=== PATIENT | female | born 2005 | race African-American/Black ===

== ENCOUNTER 2024-01-07 17:45 | Observation (INO) ==
[2024-01-07 18:26] LABS: Basophils # (auto) 0.04 K/uL (0.00-0.20); Basophils % (auto) 0.4 %; Eosinophils # (auto) 0.07 K/uL (0.00-0.50); Eosinophils % (auto) 0.8 %; Hematocrit (blood only) 38.2 % (37.0-47.0); Hemoglobin 12.2 g/dl (12.0-16.0); Immature Granulocytes # (auto) 0.03 K/uL (0.01-0.20); Immature Granulocytes % (auto) 0.3 %; Lymphocytes # (auto) 2.15 K/uL (1.20-3.40); Lymphocytes % (auto) 23.5 %; Mean Corpuscular Hgb Conc 31.9 g/dL (32.0-36.0); Mean Corpuscular Volume 84.5 fL (80.0-100.0); Mean Platelet Volume 9.7 fL (9.4-12.4); Monocytes # (auto) 1.11 K/uL (0.11-0.59); Monocytes % (auto) 12.2 %; Neutrophils # (auto) 5.73 K/uL (1.40-6.50); Neutrophils % (auto) 62.8 %; Platelet Count 311 K/uL (130-400); RDW Coefficient of Variation 13.2 % (11.5-14.5); RDW Standard Deviation 40.1 fL (36.4-46.3); Red Blood Count 4.52 M/uL (4.20-5.40); White Blood Count 9.13 K/ul (4.8-10.8)
--- NOTE | 2024-01-07 18:36 | XRay Report ---
XR chest 1V not portable CLINICAL HISTORY: Chest pain, nonspecific COMPARISON STUDY: No previous studies for comparison. FINDINGS: Lung volumes are normal. Lungs are clear. There is no pneumothorax or pleural effusion. Car diac size is normal. Mediastinal contours are normal. There is no evidence for pulmonary edema. IMPRESSION: No acute cardiopulmonary findings. ACT 112: Negative or not required by law. Electronically signed by: Osman Martin M.D. 01/07/2024 6:35 PM
[2024-01-07 18:41] LABS: Albumin Globulin Ratio 1.4 (0.9-2); Albumin Level 4.3 gm/dl (3.4-5.0); BUN Creatinine Ratio 12.5 (10-20); Bilirubin,Total 0.2 mg/dl (0.2-1.0); Calcium 9.5 mg/dl (8.6-10.3); Creatinine Clr Calc Pharmacy 132.3 ml/min; Est GFR (African American) 140.7 ml/min; Est GFR (Non-African American) 121.4 ml/min; Globulin 3.1 gm/dl (2.5-4.0); Potassium 3.5 mmol/L (3.5-5.1); Total Protein 7.4 gm/dl (6.0-8.3)
[2024-01-07 18:48] LABS: Troponin I High Sensitivity 2.5 pg/ml (0-14)
[2024-01-07 18:50] LABS: INR 1.1 (0.9-1.1); Partial Thromboplastin Time 27 Seconds (21-31); Prothrombin Time 11.4 Seconds (9.0-12.0)
[2024-01-07] MEDS: MAGNESIUM SULFATE / D5W 1 GM/100 ML BAG IV STA (20:24)
[2024-01-07] MEDS: dexAMETHasone**PF** 10 MG/ML VIAL IV ONE (20:24)
[2024-01-07] MEDS: ALBUT/IPRATROP 3MG/0.5MG NEB 3 ML VIAL NEB ONE (20:29)
[2024-01-07] MEDS: SODIUM CHLORIDE 0.9% 1,000 ML IV ONE (21:22)
--- NOTE | 2024-01-07 21:23 | Emergency Department Note ---
Impression & Plan Dyspnea, Asthma exacerbation, COVID-19 ED Provider Note ED Provider Note NAME: EL YANES AGE:18 SEX: Female : 2005 ARRIVES VIA: Private vehicle INFORMANT: Patient ED PROVIDER(s): Yoanna Barton DO CHIEF COMPLAINT: Shortness of breath, chest tightness, COVID-19 HPI: This is a 18-year-old female with a history of asthma who presents emergency room due to concern for increased cough, shortness of breath, and chest tightness that began over the weekend. Patient states she initially felt symptoms of COVID Labor Day weekend and tested positive at urgent care for COVID. She states last week on the body aches, fevers, and nasal congestion began to improve however she developed a worsening cough, increased difficulty breathing, and chest tightness. She states this has worsened over the weekend and into this week. She does use her albuterol inhaler with minimal improvement. She did go to [facility] yesterday and was given a nebulizer treatment with improvement for approximately 1 to 2 hours. They also gave her Tessalon Perles as well as Sudafed for decongestion. Patient does have a history of asthma as well as seasonal allergies. She has not been taking her cetirizine recently for her seasonal allergies. No prior admission to the hospital for asthma exacerbations. She states typically her asthma is related to exercise, allergies, and illness. There is a family history of asthma. She states she does not smoke cigarettes or vape. No other recent travel. PAST MEDICAL HISTORY:See Below PAST SURGICAL HISTORY:See Below FAMILY HISTORY:See Below SOCIAL HISTORY:See Below HOME MEDICATIONS:See Below ALLERGIES:See Below VITALS:See Below PHYSICAL EXAMINATION: GENERAL: alert, well appearing, well nourished, no distress, non-toxic EYE EXAM: normal conjunctiva, PERRL and EOM's grossly intact OROPHARYNX: no exudate, no erythema, lips, buccal mucosa, and tongue normal and mucous membranes are moist NECK: supple, no nuchal rigidity, no adenopathy, non-tender LUNGS: Decreased to auscultation. Normal chest wall mechanics, no obvious wheezes, rhonchi, or rails, tachypnea noted, slightly increased work of breathing HEART: no murmurs, S1 normal and S2 normal ABDOMEN: abdomen soft, non-tender, normo-active bowel sounds, no masses, no rebound or guarding. BACK: Back is symmetrical on inspection and there is no deformity SKIN: no rashes, petechiae, orbruising UPPER EXTREMITIES: upper extremities are grossly normal. FROM, nml pulses b/l. LOWER EXTREMITIES: No pitting edema. FROM, nml pulses b/l. NEURO EXAM: Normal sensorium, cranial nerves II-XII grossly intact, normal speech, no facial droop,nogross weakness of arms, no gross weakness of legs. Gross sensation intact. No ataxia. Vital Signs: reviewed and remarkable Differential Diagnosis: pneumonia, bronchitis, COPD/Asthma exacerbation, pneumothorax, pulmonary embolism, congestive heart failure, acute coronary syndrome, as well as others were considered MEDICAL DECISION MAKING: THis is a 18 yo female who presents to the ER with increased cough and SOB and recent COVID infection. Patient with hx of asthma. She was evaluated at [facility] and given additional cough medication and decongestant and continues to use her albuterol MDI however feels increased dyspnea and chest tightness. Labs drawn and sent, IV established, EKG and CXR performed and interpreted at bedside, and patient placed on telemetry. She was given a continuous neb, IV mag, and IV decadron. Patient states she has previously used inhaled steroids and but did not feel well on oral steroids previously. She was given IVF additionally and IV tylenol and IV toradol for chest pain. Labs reassuring, dimer negative, cxr without obvious pna or pulm edema. Patient reported feeling slightly improved following continuous neb although still not able to take a full deep breath and still having chest tightness. We discussed all results and concern for complicated covid course and asthma exacerbation and risks/benefit of additional inpatient mgmt. Patient and parents at bedside verbalized understanding. A 2nd continuous neb and further IV magnesium added. Case discussed with the hospitalist team for additional evaluation and mgmt. Consultation(s): 0115: DIscussed with Dr. Hannon, [place] hospitalist, for additional evaluation and mgmt. ER Treatment Provided: See below Diagnostics Interpreted By Me: -ECG: Normal sinus at 95, normal axis, normal intervals, no acute ST/T wave changes -Cardiac Monitoring: An order was placed for continuous cardiac monitoring. The monitor shows a rate of 108 with sinus tachycardia rhythm. -Laboratory studies: As stated above and show below. -Imaging studies: X-ray Chest: A single view study of the chest was reviewed and was negative for cardiomegaly, focal infiltrate, effusion, pulmonary edema, or wide mediastinum. Triage Nursing Note Reviewed Prior/Outside Records Reviewed Critical care: Critical care of 58 min performed to assess and manage high likelihood of life- threatening asthma exacerbation, involving labs and imaging performed with assessment to evaluate asthma exacerbation and COVID infection diagnosis with frequent reassessment. This time includes bedside time, treatment discussions with patient/family/consultants, documentation time and excludes procedure time. Past Med/Surg History Problem List (Updated 01/07/24 @ 21:23 by Yoanna Barton DO) COVID-19 (Acute) Asthma exacerbation (Acute) Dyspnea (Acute) Social History Smoking Status: Never smoker Hx Alcohol Use: No Hx Substance Use: No Preferred Language: Qatari Communication Ability: Effective Fun House Attendant Required: No Beliefs That Will Affect Care: None Current Living Situation: Alone Feels Safe at Home: Yes Assistive Devices: None Allergies Allergies Allergy/AdvReac Type Severity Reaction Status Date / Time No Known Allergies Allergy Unverified 01/07/24 21:31 Home Meds Home Medications Medication Instructions Recorded Confirmed albuterol sulfate 90 mcg/actuation 1 puff inhalation DAILY PRN sob 01/07/24 01/07/24 aerosol inhaler ashwagandha root extract 300 mg 300 mg PO DAILY 01/07/24 01/07/24 capsule benzonatate 100 mg capsule 100 mg PO DAILY 01/07/24 01/07/24 [id number]-acetaminophen 7.5 15 ml PO DAILY PRN Congestion 01/07/24 01/07/24 mg-60 [id number] oral liqd isotretinoin 40 mg capsule 40 mg PO BID 01/07/24 01/07/24 lidocaine HCl 2 % mucosal solution 5 ml PO DAILY 01/07/24 01/07/24 (Lidocaine Viscous) [id number] 1 mg 1 tab PO DAILY 01/07/24 01/07/24 tablet Previous Rx's Medication Instructions Recorded prednisone 20 mg tablet 40 mg (2 x 20 mg) PO DAILY 4 days 01/08/24 #8 tabs Results & Data (ED) Vital Signs Vital Signs - 24 hr 01/07/24 17:48 01/07/24 18:25 01/07/24 18:25 Temperature 36.7 C Temperature Source Temporal Artery Scan Pulse Rate 106 H Pulse Rate [Apical] 93 H Pulse Rhythm [Apical] Regular Pulse Strength [Apical] Respiratory Rate 19 14 Respiratory Effort / Characteristics Non-Labored Spontaneous Non-Labored Spontaneous Respiratory Depth Normal Normal Respiratory Pattern Regular Blood Pressure 105/52 L Blood Pressure [Left Arm] 121/75 Blood Pressure Mean 69 Blood Pressure Mean [Left Arm] 90 Blood Pressure Position Sitting Blood Pressure Position [Left Arm] Semi-fowlers Pulse Oximetry 95 98 98 Oxygen Delivery Method Room Air Room Air Room Air Sepsis Recent Fever Within 48 Hours No Sepsis New/Unexplained Change in Mental Status No Sepsis Action Taken by Nursing No Action Required 01/07/24 18:25 01/07/24 18:31 01/07/24 19:13 Temperature Temperature Source Pulse Rate 93 H 94 H Pulse Rate [Apical] 95 H Pulse Rhythm [Apical] Regular Pulse Strength [Apical] Respiratory Rate 14 14 Respiratory Effort / Characteristics Non-Labored Spontaneous Respiratory Depth Normal Respiratory Pattern Regular Blood Pressure Blood Pressure [Left Arm] 109/75 Blood Pressure Mean Blood Pressure Mean [Left Arm] 86 Blood Pressure Position Blood Pressure Position [Left Arm] Semi-fowlers Pulse Oximetry 98 100 Oxygen Delivery Method Room Air Room Air Sepsis Recent Fever Within 48 Hours Sepsis New/Unexplained Change in Mental Status Sepsis Action Taken by Nursing 01/07/24 20:15 01/07/24 20:32 01/07/24 20:42 Temperature Temperature Source Pulse Rate Pulse Rate [Apical] 100 H 106 H Pulse Rhythm [Apical] Regular Regular Pulse Strength [Apical] Respiratory Rate 18 17 Respiratory Effort / Characteristics Non-Labored Spontaneous Non-Labored Spontaneous Respiratory Depth Normal Normal Respiratory Pattern Regular Regular Blood Pressure Blood Pressure [Left Arm] 92/80 L 107/67 Blood Pressure Mean Blood Pressure Mean [Left Arm] 84 80 Blood Pressure Position Blood Pressure Position [Left Arm] Pulse Oximetry 98 98 Oxygen Delivery Method Nasal Cannula Room Air Sepsis Recent Fever Within 48 Hours Sepsis New/Unexplained Change in Mental Status Sepsis Action Taken by Nursing 01/07/24 21:19 01/07/24 22:42 01/07/24 22:56 Temperature 37.2 C Temperature Source Oral Pulse Rate 111 H Pulse Rate [Apical] 127 H 104 H Pulse Rhythm [Apical] Regular Regular Pulse Strength [Apical] Normal Respiratory Rate 18 23 Respiratory Effort / Characteristics Non-Labored Spontaneous Non-Labored Respiratory Depth Normal Normal Respiratory Pattern Regular Regular Blood Pressure Blood Pressure [Left Arm] 113/75 119/63 Blood Pressure Mean Blood Pressure Mean [Left Arm] 87 81 Blood Pressure Position Blood Pressure Position [Left Arm] Sitting Pulse Oximetry 98 97 Oxygen Delivery Method Room Air Room Air Sepsis Recent Fever Within 48 Hours Sepsis New/Unexplained Change in Mental Status Sepsis Action Taken by Nursing 01/08/24 00:00 Temperature Temperature Source Pulse Rate Pulse Rate [Apical] 107 H Pulse Rhythm [Apical] Pulse Strength [Apical] Respiratory Rate 17 Respiratory Effort / Characteristics Non-Labored Spontaneous Respiratory Depth Normal Respiratory Pattern Regular Blood Pressure Blood Pressure [Left Arm] 90/43 L Blood Pressure Mean Blood Pressure Mean [Left Arm] 58 Blood Pressure Position Blood Pressure Position [Left Arm] Pulse Oximetry 98 Oxygen Delivery Method Room Air Sepsis Recent Fever Within 48 Hours Sepsis New/Unexplained Change in Mental Status Sepsis Action Taken by Nursing Laboratory Data 01/07/24 17:57 01/07/24 17:57 Lab Results 01/07/24 01/07/24 Range/Units 17:57 22:45 WBC 9.13 (4.8-10.8) K/ul RBC 4.52 (4.20-5.40) M/uL Hgb 12.2 (12.0-16.0) g/dl Hct 38.2 (37.0-47.0) % MCV 84.5 (80.0-100.0) fL MCH 27.0 (25.0-34.0) pg MCHC 31.9 L (32.0-36.0) g/dL RDW Std Deviation 40.1 (36.4-46.3) fL RDW Coeff of Bhumika 13.2 (11.5-14.5) % Plt Count 311 (130-400) K/uL MPV 9.7 (9.4-12.4) fL Immature Gran % (Auto) 0.3 % Neut % (Auto) 62.8 % Lymph % (Auto) 23.5 % Stanley % (Auto) 12.2 % Eos % (Auto) 0.8 % Baso % (Auto) 0.4 % Neut # (Auto) 5.73 (1.40-6.50) K/uL Lymph # (Auto) 2.15 (1.20-3.40) K/uL Stanley # (Auto) 1.11 H (0.11-0.59) K/uL Eos # (Auto) 0.07 (0.00-0.50) K/uL Baso # (Auto) 0.04 (0.00-0.20) K/uL Immature Gran # (Auto) 0.03 (0.01-0.20) K/uL PT 11.4 (9.0-12.0) Seconds INR 1.1 (0.9-1.1) APTT 27 (21-31) Seconds PTT Ratio 1.0 D-Dimer < 190 (0-500) ug/L FEU Sodium 140 (136-145) mmol/L Potassium 3.5 (3.5-5.1) mmol/L Chloride 106 (98-107) mmol/L Carbon Dioxide 28 (21-32) mmol/L Anion Gap 6 (3-11) BUN 9 (6-23) mg/dl Creatinine 0.72 (0.6-1.2) mg/dl Est Cr Clr Drug Dosing 132.3 ml/min Est GFR ( Amer) 140.7 ml/min Est GFR (Non-Af Amer) 121.4 ml/min BUN/Creatinine Ratio 12.5 (10-20) Glucose 108 H (70-99(Fasting)) mg/dl Calcium 9.5 (8.6-10.3) mg/dl Magnesium 1.8 (1.7-2.4) mg/dl Total Bilirubin 0.2 (0.2-1.0) mg/dl AST 22 (13-39) U/L ALT 16 (7-52) U/L Alkaline Phosphatase 67 (34-104) U/L Troponin I High Sens 2.5 (0-14) pg/ml Total Protein 7.4 (6.0-8.3) gm/dl Albumin 4.3 (3.4-5.0) gm/dl Globulin 3.1 (2.5-4.0) gm/dl Albumin/Globulin Ratio 1.4 (0.9-2) Administered Medications Discontinued Medications Albuterol (Albut/Ipratrop 3mg/0.5mg Neb 3 Ml Vial) 12 ml NEB ONE ONE; Protocol Stop: 01/07/24 20:16 Last Admin: 01/07/24 20:29 Dose: 12 ml Documented By: ALE Albuterol (Albut/Ipratrop 3mg/0.5mg Neb 3 Ml Vial) 12 ml NEB ONE ONE; Protocol Stop: 01/08/24 00:28 Last Admin: 01/08/24 01:05 Dose: 12 ml Documented By: Albuterol (Albut/Ipratrop 3mg/0.5mg Neb 3 Ml Vial) 3 ml NEB QIDR MARY; Protocol Stop: 02/07/24 06:59 Last Admin: 01/08/24 07:36 Dose: 3 ml Documented By: FRED Benzonatate (Benzonatate 100 Mg Capsule) 100 mg PO TID [facility] Stop: 02/07/24 08:59 Last Admin: 01/08/24 14:06 Dose: 100 mg Documented By: Admin: 01/08/24 09:28 Dose: 100 mg Documented By: CIRA Dexamethasone Sodium Phosphate (DexamethasonePf 10 Mg/Ml Vial) 10 mg IV NOW ONE Stop: 01/07/24 20:16 Last Admin: 01/07/24 20:24 Dose: 10 mg Documented By: ALE Enoxaparin Sodium (Enoxaparin Inj 40 Mg/0.4 Ml Syr) 40 mg SQ Q12H MARY Stop: 02/07/24 08:59 Last Admin: 01/08/24 09:30 Dose: Not Given Documented By: CIRA Guaifenesin (Guaifenesin Sugar Free 200 Mg/10 Ml Udc) 200 mg PO Q6H [facility] Stop: 02/07/24 02:27 Last Admin: 01/08/24 09:29 Dose: 200 mg Documented By: Admin: 01/08/24 04:28 Dose: 200 mg Documented By: GUERITA Magnesium Sulfate/Dextrose (Magnesium Sulfate / D5w) 1 gm in 100 mls @ 100 mls/hr IV NOW STA Stop: 01/07/24 21:14 Last Infusion: 01/07/24 21:32 Dose: Infused Documented By: Admin: 01/07/24 20:24 Dose: 100 mls/hr Documented By: ALE Acetaminophen (Ofirmev) 1,000 mg in 100 mls @ 400 mls/hr IV NOW STA Stop: 01/07/24 21:33 Last Infusion: 01/07/24 22:40 Dose: Infused Documented By: Admin: 01/07/24 21:32 Dose: 400 mls/hr Documented By: SHIVA Sodium Chloride (Nss) 1,000 mls @ 999 mls/hr IV .Q1H1M ONE Stop: 01/07/24 22:19 Last Infusion: 01/07/24 22:40 Dose: Infused Documented By: Admin: 01/07/24 21:22 Dose: 999 mls/hr Documented By: ALE Sodium Chloride (Nss) 1,000 mls @ 125 mls/hr IV .Q8H MARY Stop: 02/07/24 00:44 Last Infusion: 01/08/24 02:42 Dose: Infused Documented By: Admin: 01/08/24 01:05 Dose: 125 mls/hr Documented By: Famotidine (Pepcid 20mg Iv Push) 20 mg in 5 mls @ 2.5 mls/min IV NOW STA Stop: 01/08/24 00:40 Last Admin: 01/08/24 01:05 Dose: 2.5 mls/min Documented By: Magnesium Sulfate/Dextrose (Magnesium Sulfate / D5w) 1 gm in 100 mls @ 100 mls/hr IV NOW STA Stop: 01/08/24 01:39 Last Infusion: 01/08/24 02:06 Dose: Infused Documented By: Admin: 01/08/24 01:04 Dose: 100 mls/hr Documented By: Azithromycin 500 mg/ Dextrose 255 mls @ 125 mls/hr IV NOW STA Stop: 01/08/24 04:01 Last Infusion: 01/08/24 04:26 Dose: Infused Documented By: Admin: 01/08/24 02:22 Dose: 125 mls/hr Documented By: GUERITA Pantoprazole Sodium 40 mg/ (Syringe) 10 mls @ 5 mls/min IV NOW STA Stop: 01/08/24 02:00 Last Admin: 01/08/24 02:22 Dose: 5 mls/min Documented By: GUERITA Potassium Chloride/Sodium Chloride (Normal Saline W/20 Meq Kcl) 20 meq in 1,000 mls @ 80 mls/hr IV .[id number] MARY Stop: 01/08/24 15:44 Last Admin: 01/08/24 04:28 Dose: 80 mls/hr Documented By: GUERITA Methylprednisolone 60 mg/ (Syringe) 0.96 mls @ 1.5 mls/min IV Q8H MARY Stop: 02/07/24 06:59 Last Admin: 01/08/24 07:42 Dose: 1.5 mls/min Documented By: CIRA Ketorolac Tromethamine (Ketorolac Tromethamine 15 Mg/Ml Vial) 10 mg IV NOW ONE Stop: 01/07/24 21:20 Last Admin: 01/07/24 21:32 Dose: 10 mg Documented By: SHIVA Miscellaneous (Isotretinoin 40 Mg - Order Awaiting Action) 1 each N/A QS MARY Stop: 02/07/24 07:59 Last Admin: 01/08/24 11:07 Dose: Not Given Documented By: CIRA Prenat Multivit/[place]/Iron/Folic Ac ( Vitamin 1 Tab) 1 tab PO DAILY MARY Stop: 02/07/24 08:59 Last Admin: 01/08/24 09:28 Dose: 1 tab Documented By: CIRA Imaging Data Radiologist's Impression: Chest X-Ray 01/07/24 17:51 XR chest 1V not portable CLINICAL HISTORY: Chest pain, nonspecific COMPARISON STUDY: No previous studies for comparison. FINDINGS: Lung volumes are normal. Lungs are clear. There is no pneumothorax or pleural effusion. Cardiac size is normal. Mediastinal contours are normal. There is no evidence for pulmonary edema. IMPRESSION: No acute cardiopulmonary findings. ACT 112: Negative or not required by law. Electronically signed by: Osman Martin M.D. 01/07/2024 6:35 PM Discharge Plan Visit Data Chief Complaint: Chest Pain Stated Complaint: CHEST PAIN, SOB, POS FOR COVID ED Provider: Yoanna Barton Discharge Problem: Dyspnea, Asthma exacerbation, COVID-19 Patient Disposition: Admitted As Inpatient Discharge Instructions Interventions: ED Discharge Assessment Last Done: 01/08/24 14:22
[2024-01-07] MEDS: KETOROLAC TROMETHAMINE 15 MG/ML VIAL IV ONE (21:32)
[2024-01-07] MEDS: ACETAMINOPHEN 1,000 MG/100 ML VIAL IV STA (21:32)
[2024-01-07 23:49] LABS: D Dimer < 190 ug/L FEU (0-500)
[2024-01-08] MEDS: MAGNESIUM SULFATE / D5W 1 GM/100 ML BAG IV STA (01:04)
[2024-01-08] MEDS: SODIUM CHLORIDE 0.9% 1,000 ML IV SCH (01:05)
[2024-01-08] MEDS: ALBUT/IPRATROP 3MG/0.5MG NEB 3 ML VIAL NEB ONE (01:05)
[2024-01-08] MEDS: FAMOTIDINE 20MG IV PUSH 20 MG/5 ML SYR IV STA (01:05)
[2024-01-08 01:35] LABS: Magnesium 1.8 mg/dl (1.7-2.4)
[2024-01-08] MEDS ORDERED: ZOLPIDEM TARTRATE 5 MG TAB PO PRN (02:04)
--- NOTE | 2024-01-08 02:04 | History & Physical Report ---
Date of Service January 08, 2024 Assessment & Plan (1) Asthma exacerbation: (2) COVID-19: Plan Asthma exacerbation/COVID-19 infection- Patient is lungs are still very tight, with very decreased air movement, despite significant treatment from the ED She did complete a course of Paxlovid, for COVID infection that began about 10 days ago Admit to monitored bed COVID-19 precautions Sputum Gram stain and culture Methylprednisolone 60 mg IV every 8 hours Duonebs every 4 hours while awake and every 2 hours when necessary. Azithromycin 500 mg IV daily Tessalon Perles 100 mg p.o. 3 times daily scheduled Guaifenesin syrup 200 mg by mouth every 6 hours Pantoprazole 40 mg IV x 1 in the ED NSS + KCl 20 mEq at 80 mL/h x 1 L Consult pulmonology Insomnia- Trial of zolpidem 5 mg p.o. at bedtime as needed History of Present Illness Chief Complaint: The patient presents to the emergency department with worsening shortness of breath and dyspnea on exertion, after having completed a course of Paxlovid for a diagnosis of COVID about 10 days ago. She has been using her inhaler with minimal improvement, and had been given Tessalon Perles and a Medrol Dosepak from [facility] yesterday. Primary Care Provider: [facility] The patient is a 18-year-old female with a past medical history including allergic rhinitis and asthma, who presents to the emergency department have been diagnosed with COVID at an acute care center about 10 days ago. She completed a course of Paxlovid, which did not seem to affect her symptomatology. Due to worsening cough and shortness of breath, she was seen at [facility] yesterday, was given a prescription for Tessalon Perles, and albuterol inhaler, and a Medrol Dosepak. Due to worsening cough and shortness of breath today, she presents to the ED for assessment. In the emergency department she received 2 hour-long DuoNeb treatments, magnesium sulfate 2 g IV, dexamethasone 10 mg IV, Toradol 10 mg IV, Tylenol 1 g IV, and famotidine 20 mg IV. With persistent symptoms, she was referred to the hospitalist service for admission Allergies Allergy/AdvReac Type Severity Reaction Status Date / Time No Known Allergies Allergy Unverified 01/07/24 21:31 Home Medications Medication Instructions Recorded Confirmed Type albuterol sulfate 90 mcg/actuation 1 puff inhalation DAILY PRN sob 01/07/24 01/07/24 History aerosol inhaler ashwagandha root extract 300 mg 300 mg PO DAILY 01/07/24 01/07/24 History capsule benzonatate 100 mg capsule 100 mg PO DAILY 01/07/24 01/07/24 History ehiarqwvi-DGR-YY-acetaminophen 7.5 15 ml PO DAILY PRN Congestion 01/07/24 01/07/24 History mg-60 [id number]/30mL oral liqd isotretinoin 40 mg capsule 40 mg PO BID 01/07/24 01/07/24 History lidocaine HCl 2 % mucosal solution 5 ml PO DAILY 01/07/24 01/07/24 History (Lidocaine Viscous) yoknkmla-jmz-Jq-FA 1 mg 1 tab PO DAILY 01/07/24 01/07/24 History tablet Past Med/Surg History Problem List (Updated 01/07/24 @ 21:23 by Yoanna Barton DO) COVID-19 (Acute) Asthma exacerbation (Acute) Dyspnea (Acute) Social History Smoking Status: Never smoker Hx Alcohol Use: No Hx Substance Use: No Preferred Language: Maltese Communication Ability: Effective [employer] Partner Required: No Beliefs That Will Affect Care: None Current Living Situation: Alone Feels Safe at Home: Yes Safety Concerns: Feels Safe At This Time Review of Systems Review of Systems: The patient denies chest pain, palpitations, lower extremity swelling, chills, sweats, fatigue, nausea, vomiting, diarrhea , constipation, abdominal pain, pelvic pain, blood in urine or stool, dysuria, urinary frequency or urgency, lightheadedness, dizziness, headache, memory loss, loss of consciousness, rash, abnormal bruising or bleeding, imbalance, focal weakness, numbness or tingling in arms or legs, generalized arthralgias or myalgias, back or neck pain, or night sweats. The review of systems is otherwise negative other than for that already noted above, and at least 10 systems have been reviewed. Physical Exam Physical Exam: The patient is awake, alert and oriented 3, well developed and well nourished, normocephalic and atraumatic, lying in bed and in no acute distress. HEENT--PERRL, EOMI, mucous membranes and oropharynx dry. Neck--supple. No JVD. No bruits. Thyroid normal, trachea midline, no adenopathy. Heart--mildly tachycardic and regular. No murmurs, rubs or gallops. Lungs--decreased breath sounds throughout. No respiratory distress, no accessory muscle use. Abdomen--normal bowel sounds and soft. Nontender. Nondistended, no hernias or masses, no organomegaly. Extremities--no cyanosis or clubbing. No edema. Dermatologic--normal skin turgor, normal color, no abnormal lymph nodes, no rash. Neurologic--cranial nerves II through XII grossly intact. Rheumatologic--normal range of motion. Psychiatric--normal affect. Results & Data Results & Data Vital Signs (Past 12 Hours) Vital Signs Temp Pulse Pulse Resp BP BP Pulse Ox 01/08/24 00:00 107 H 17 90/43 L 98 01/07/24 22:56 111 H 01/07/24 22:42 37.2 C 104 H 23 119/63 97 01/07/24 21:19 127 H 18 113/75 98 01/07/24 20:42 107/67 01/07/24 20:32 106 H 17 98 01/07/24 20:15 100 H 18 92/80 L 98 01/07/24 19:13 95 H 14 109/75 100 01/07/24 18:31 94 H 01/07/24 18:25 93 H 14 98 01/07/24 18:25 93 H 14 121/75 98 01/07/24 18:25 98 01/07/24 17:48 36.7 C 106 H 19 105/52 L 95 O2 Del Method 01/08/24 00:00 Room Air 01/07/24 22:56 01/07/24 22:42 Room Air 01/07/24 21:19 Room Air 01/07/24 20:42 01/07/24 20:32 Room Air 01/07/24 20:15 Nasal Cannula 01/07/24 19:13 Room Air 01/07/24 18:31 01/07/24 18:25 Room Air 01/07/24 18:25 Room Air 01/07/24 18:25 Room Air 01/07/24 17:48 Room Air Laboratory Results Laboratory Results WBC 9.13 K/ul (4.8-10.8) 01/07/24 17:57 RBC 4.52 M/uL (4.20-5.40) 01/07/24 17:57 Hgb 12.2 g/dl (12.0-16.0) 01/07/24 17:57 Hct 38.2 % (37.0-47.0) 01/07/24 17:57 MCV 84.5 fL (80.0-100.0) 01/07/24 17:57 MCH 27.0 pg (25.0-34.0) 01/07/24 17:57 MCHC 31.9 g/dL (32.0-36.0) L 01/07/24 17:57 RDW Std Deviation 40.1 fL (36.4-46.3) 01/07/24 17:57 RDW Coeff of Bhumika 13.2 % (11.5-14.5) 01/07/24 17:57 Plt Count 311 K/uL (130-400) 01/07/24 17:57 MPV 9.7 fL (9.4-12.4) 01/07/24 17:57 Immature Gran % (Auto) 0.3 % 01/07/24 17:57 Neut % (Auto) 62.8 % 01/07/24 17:57 Lymph % (Auto) 23.5 % 01/07/24 17:57 Stanley % (Auto) 12.2 % 01/07/24 17:57 Eos % (Auto) 0.8 % 01/07/24 17:57 Baso % (Auto) 0.4 % 01/07/24 17:57 Neut # (Auto) 5.73 K/uL (1.40-6.50) 01/07/24 17:57 Lymph # (Auto) 2.15 K/uL (1.20-3.40) 01/07/24 17:57 Stanley # (Auto) 1.11 K/uL (0.11-0.59) H 01/07/24 17:57 Eos # (Auto) 0.07 K/uL (0.00-0.50) 01/07/24 17:57 Baso # (Auto) 0.04 K/uL (0.00-0.20) 01/07/24 17:57 Immature Gran # (Auto) 0.03 K/uL (0.01-0.20) 01/07/24 17:57 PT 11.4 Seconds (9.0-12.0) 01/07/24 17:57 INR 1.1 (0.9-1.1) 01/07/24 17:57 APTT 27 Seconds (21-31) 01/07/24 17:57 PTT Ratio 1.0 01/07/24 17:57 D-Dimer < 190 ug/L FEU (0-500) 01/07/24 22:45 Sodium 140 mmol/L (136-145) 01/07/24 17:57 Potassium 3.5 mmol/L (3.5-5.1) 01/07/24 17:57 Chloride 106 mmol/L (98-107) 01/07/24 17:57 Carbon Dioxide 28 mmol/L (21-32) 01/07/24 17:57 Anion Gap 6 (3-11) 01/07/24 17:57 BUN 9 mg/dl (6-23) 01/07/24 17:57 Creatinine 0.72 mg/dl (0.6-1.2) 01/07/24 17:57 Est Cr Clr Drug Dosing 132.3 ml/min 01/07/24 17:57 Est GFR ( Amer) 140.7 ml/min 01/07/24 17:57 Est GFR (Non-Af Amer) 121.4 ml/min 01/07/24 17:57 BUN/Creatinine Ratio 12.5 (10-20) 01/07/24 17:57 Glucose 108 mg/dl (70-99(Fasting)) H 01/07/24 17:57 Calcium 9.5 mg/dl (8.6-10.3) 01/07/24 17:57 Magnesium 1.8 mg/dl (1.7-2.4) 01/07/24 17:57 Total Bilirubin 0.2 mg/dl (0.2-1.0) 01/07/24 17:57 AST 22 U/L (13-39) 01/07/24 17:57 ALT 16 U/L (7-52) 01/07/24 17:57 Alkaline Phosphatase 67 U/L (34-104) 01/07/24 17:57 Troponin I High Sens 2.5 pg/ml (0-14) 01/07/24 17:57 Total Protein 7.4 gm/dl (6.0-8.3) 01/07/24 17:57 Albumin 4.3 gm/dl (3.4-5.0) 01/07/24 17:57 Globulin 3.1 gm/dl (2.5-4.0) 01/07/24 17:57 Albumin/Globulin Ratio 1.4 (0.9-2) 01/07/24 17:57 Impressions Chest X-Ray 01/07/24 17:51 XR chest 1V not portable CLINICAL HISTORY: Chest pain, nonspecific COMPARISON STUDY: No previous studies for comparison. FINDINGS: Lung volumes are normal. Lungs are clear. There is no pneumothorax or pleural effusion. Cardiac size is normal. Mediastinal contours are normal. There is no evidence for pulmonary edema. IMPRESSION: No acute cardiopulmonary findings. ACT 112: Negative or not required by law. Electronically signed by: Osman Martin M.D. 01/07/2024 6:35 PM Code Status & VTE Plan Code Status Full code VTE Prophylaxis Plan VTE Prophylaxis will be ordered: Yes PG Care Time/CCT Total # of Minutes Spent Total Time Spent with Patient: Total time spent is greater than 50% in coordination of care (as documented) at patient's floor/unit and/or counseling patient: Coding Level of Care Code 57170 INT INP/OBS CARE 3/75MIN Diagnoses Asthma exacerbation J45.901 COVID-19 U07.1
[2024-01-08] MEDS: AZITHROMYCIN 500 MG in DEXTROSE 5% 250 ML IV STA (02:22)
[2024-01-08] MEDS: PANTOprazole 40 MG in SYRINGE 0 ML IV STA (02:22)
[2024-01-08] MEDS ORDERED: ACETAMINOPHEN 325 MG TAB PO PRN (02:28)
[2024-01-08 02:34] VITALS: TEMP 98.2
[2024-01-08] MEDS: NSS + 20MEQ KCL 20 MEQ/1,000 ML BAG IV SCH (04:28)
[2024-01-08] MEDS: guaiFENesin SUGAR FREE 200 MG/10 ML UDC PO SCH (04:28)
[2024-01-08] MEDS ORDERED: methylPREDNISolone 1000 MG/16 ML IV SCH (07:00)
[2024-01-08] MEDS: ALBUT/IPRATROP 3MG/0.5MG NEB 3 ML VIAL NEB SCH (07:36)
[2024-01-08] MEDS: methylPREDNISolone 60 MG in SYRINGE 0 ML IV SCH (07:42)
[2024-01-08] MEDS ORDERED: ALBUT/IPRATROP 3MG/0.5MG NEB 3 ML VIAL NEB PRN ×2 (08:29→08:31)
--- NOTE | 2024-01-08 08:33 | Pulmonary Consultation ---
Date of Consultation January 08, 2024 Assessment & Plan (1) COVID-19: (2) Asthma exacerbation: (3) Dyspnea: Plan IMPRESSION: 18-year-old female with previous diagnosis of exercise-induced asthma who presents in the setting of COVID-19 infection with presumed asthma exacerbation. RECOMMENDATIONS: 1. COVID - Patient had completed course of Paxlovid. She is not hypoxic. She had received aggressive steroids at the time of admission. No need for further management or intervention of the COVID at this time other than conservative measures. Bkth-cjv-mbxvbsw decongestants and antihistamines as needed. Consideration for cough suppressant agents. 2. Asthma exacerbation - Patient was apparently profoundly wheezy on exam last evening. Thankfully, she is not bronchospastic on exam today at all. She is not hypoxic and is moving good air. I would back down her parenteral steroids to once daily and then start tomorrow with short course of prednisone. No indication for antibiotics at this point. She has a rescue inhaler. She warrants outpatient pulmonary follow-up for exploration of symptoms that have been current progressive related to her asthma. Consideration for NIOX testing and formal pulmonary function testing in the outpatient setting. This does not need to be performed the next 4 to 6 weeks until the patient has a chance to completely recover. Otherwise, patient is stable from a pulmonary perspective. Thank you for allowing us to participate in the care of this pleasant patient. Pulmonary medicine will sign off at this time. Please feel free to reach out to us for any further questions or concerns. Supervising Physician Co-Signing Physician Notes I saw and evaluated the patient with Yoni Grande PA-C, and agree with findings and plan as documented in the note. 18-year-old female present to the hospital with complaints of chest pain which was reproducible on palpation She was diagnosed with COVID approximately a week ago. Symptoms were mostly runny nose cough and sore throat. Patient's mother was in the room at the time of examination She was not in any respiratory distress Respiratory it was in the mid teens, saturation was 97% on room air. Heart rate was in the high 90s. Patient says she is feeling better since coming to the hospital. She did have some wheezing on and off last week but it has resolved since. Her main complaint was pain on bilateral lateral side which was reproducible on palpation. Does complain of chest congestion and difficulty bringing up the phlegm. No hemoptysis. Constitutional: No acute distress HEENT: EOMI, PERRLA Respiratory system: Good air entry bilaterally, no wheeze, no rhonchi, no crackles CVS: S1-S2 positive, no murmurs or gallops, tachycardia Abdomen: Soft, nontender, nondistended, positive bowel sounds x4 Extremities: +2 pulses bilaterally radialis/ dorsalis pedis, no cyanosis, no edema Neuro: Awake alert oriented x3 Psych: Normal mood and affect G/U: No Parra Plan: Chest x-ray from today does show hyperinflation but no pulmonary abnormality. The reason for patient's chest pain is most likely musculoskeletal from relentless coughing. Tylenol and as needed NSAIDs for the pain Recommend Mucinex-DM to be used aafnqh-gec-dknik She does have history of exercise-induced asthma and uses only albuterol. Would recommend formoterol and budesonide to be used while hospitalized and at home Symbicort with the help of a spacer 80-4.5 mcg, 2 puffs twice a day for at least 7 days and then as needed for shortness of breath. Okay to transition to p.o. prednisone for 5 days starting tomorrow. DC azithromycin I did educate the patient as well as patient's mother that cough post any viral infection including COVID can linger for a while. Can take ucuo-ory-omhxxkr antihistamines and gargling with lukewarm water will help All questions and queries of patient's mother were answered in depth No further recommendation from pulmonary perspective, will sign off Please call directly with any questions Please note the above document was generated using voice recognition software. It may contain grammatical, syntax or spelling errors.Any formal questions or concerns about the content, text or information contained within the body of this dictation should be directly addressed to the provider for clarification. History of Present Illness Reason for Consultation: asthma exacerbation, COVID Requesting Physician: Dr. Hannon Attending Physician: Russel Bills DO History of Present Illness Patient is a 18-year-old [employer] student who presented to the emergency department last evening with complaints of worsening shortness of breath and cough. The patient carries a prior diagnosis of exercise-induced asthma as a child and teenager. She states that over the last several years, she has noticed some increasing frequency of asthma exacerbations related to allergies. She has never formally tested positive for any allergies, but reports that the springtime is typically difficult for her. She does carry a history of eczema. No prior history of admissions related to her asthma. She was a full-term infant and carries no allergy to aspirin or NSAIDs. Patient started with a sore throat and nasal congestion on Day and reports that her symptoms progressed to a cough and generalized weakness and fatigue. The cough is been persistent and has disrupted her sleep. She states that has been her main complaint. She has had some discomfort in her chest with coughing. There is been no hemoptysis or significant sputum production. She has tried limited lapw-swa-bbmvpeu medications without relief of symptoms. After treatment in the emergency department, she reports feeling somewhat better at this time. She is able to take bigger breaths at this point. She offers no complaints of fevers, chills, headaches, dizziness, lightheadedness, palpitations, dizziness, lightheadedness, hemoptysis, or presyncope. Allergies Allergy/AdvReac Type Severity Reaction Status Date / Time No Known Allergies Allergy Unverified 01/07/24 21:31 Home Medications Medication Instructions Recorded Confirmed Type albuterol sulfate 90 mcg/actuation 1 puff inhalation DAILY PRN sob 01/07/24 01/07/24 History aerosol inhaler ashwagandha root extract 300 mg 300 mg PO DAILY 01/07/24 01/07/24 History capsule benzonatate 100 mg capsule 100 mg PO DAILY 01/07/24 01/07/24 History nhzfdbsxo-OEE-TS-acetaminophen 7.5 15 ml PO DAILY PRN Congestion 01/07/24 01/07/24 History mg-60 [id number]-8677fd/30mL oral liqd isotretinoin 40 mg capsule 40 mg PO BID 01/07/24 01/07/24 History lidocaine HCl 2 % mucosal solution 5 ml PO DAILY 01/07/24 01/07/24 History (Lidocaine Viscous) viawkkqb-uut-Tp-FA 1 mg 1 tab PO DAILY 01/07/24 01/07/24 History tablet prednisone 20 mg tablet 40 mg (2 x 20 mg) PO DAILY 4 days 01/08/24 Rx #8 tabs Patient History Social History Smoking Status: Never smoker Hx Alcohol Use: No Hx Substance Use: No Preferred Language: Estonian Communication Ability: Effective Chemical Dependency Professional Required: No Beliefs That Will Affect Care: None Current Living Situation: Alone Feels Safe at Home: Yes Safety Concerns: Feels Safe At This Time Review of Systems 2 Review of Systems: A complete 10 point review of systems was reviewed with the patient with pertinent positives and negatives as per history of present illness. All else were negative. Physical Exam 2 Physical Exam: VITAL SIGNS Vital signs and nursing notes were reviewed. GENERAL 18-year-old female appearing her stated age who is in no acute distress. Communicates well with provider and answers questions appropriately. SKIN Without rashes or lesions. NOSE Midline and without cyanosis. MOUTH/OROPHARYNX Without perioral cyanosis. NECK Neck with FROM. LUNGS Chest wall evaluation demonstrates normal chest wall A:P diameter. Auscultation reveals clear breath sounds bilaterally without wheezes, rales, rhonchi appreciated. CARDIAC RRR with S1/S2. No murmur, rubs, or gallops appreciated. EXTREMITIES Nail clubbing not present. No peripheral cyanosis. No pretibial edema present. +3/5 radial palpated throughout. PSYCH A&Ox3 and cooperates fully with examiner. Pt is very pleasant and interacts well with examiner. Results & Data Results & Data Vital Signs (Past 12 Hours) Vital Signs Temp Pulse Pulse Resp BP Pulse Ox O2 Del Method 01/08/24 07:36 77 20 96 Room Air 01/08/24 07:13 104 H 01/08/24 02:53 Room Air 01/08/24 02:53 106 H 18 98 Room Air 01/08/24 02:33 36.8 C 121 H 20 108/57 L 98 Room Air 01/08/24 00:00 107 H 17 90/43 L 98 Room Air 01/07/24 22:56 111 H 01/07/24 22:42 37.2 C 104 H 23 119/63 97 Room Air 01/07/24 21:19 127 H 18 113/75 98 Room Air 01/07/24 20:42 107/67 Laboratory Results 01/07/24 17:57 01/07/24 17:57 PG Care Time/CCT Total # of Minutes Spent Total Time Spent with Patient: Total time spent is greater than 50% in coordination of care (as documented) at patient's floor/unit and/or counseling patient: Coding Level of Care Code 53754 INT INP/OBS CARE 3/75MIN Diagnoses COVID-19 U07.1 Asthma exacerbation J45.901 Dyspnea R06.00
[2024-01-08] MEDS ORDERED: methylPREDNISolone 40 MG in SYRINGE 0 ML IV SCH (09:00)
[2024-01-08] MEDS: BENZONATATE 100 MG CAPSULE PO SCH (09:28)
[2024-01-08] MEDS: PRENATAL VITAMIN 1 TAB PO SCH (09:28)
[2024-01-08] MEDS: ENOXAPARIN INJ 40 MG/0.4 ML SYR SQ SCH (09:30)
[2024-01-08 13:39] VITALS: RESP 24; O2SAT 98
--- NOTE | 2024-01-08 14:27 | Electrocardiogram Report ---
Test Reason : Blood Pressure : */* mmHG Vent. Rate : 95 BPM Atrial Rate : 95 BPM P-R Int : 116 ms QRS Dur : 82 ms QT Int : 340 ms P-R-T Axes : 51 69 63 degrees QTcB Int : 427 ms Normal sinus rhythm Normal ECG No previous ECGs available Confirmed by Toño Tatum ([id number]) on 01/08/2024 2:26:36 PM Referred By: REFERRED SELF Confirmed By: Toño Tatum
--- NOTE | 2024-01-08 15:52 | Discharge Summary ---
Date of Service January 08, 2024 Admission HPI Per Admitting Provider The patient is a 18-year-old female with a past medical history including allergic rhinitis and asthma, who presents to the emergency department have been diagnosed with COVID at an acute care center about 10 days ago. She completed a course of Paxlovid, which did not seem to affect her symptomatology. Due to worsening cough and shortness of breath, she was seen at [facility] yesterday, was given a prescription for Tessalon Perles, and albuterol inhaler, and a Medrol Dosepak. Due to worsening cough and shortness of breath today, she presents to the ED for assessment. In the emergency department she received 2 hour-long DuoNeb treatments, magnesium sulfate 2 g IV, dexamethasone 10 mg IV, Toradol 10 mg IV, Tylenol 1 g IV, and famotidine 20 mg IV. With persistent symptoms, she was referred to the hospitalist service for admission Admission Exam Per Admitting Provider Constitutional: No acute distress HEENT: EOMI, PERRLA Respiratory system: Good air entry bilaterally, no wheeze, no rhonchi, no crackles CVS: S1-S2 positive, no murmurs or gallops, tachycardia Abdomen: Soft, nontender, nondistended, positive bowel sounds x4 Extremities: +2 pulses bilaterally radialis/ dorsalis pedis, no cyanosis, no edema Neuro: Awake alert oriented x3 Psych: Normal mood and affect G/U: No Parra Principal Diagnosis post-COVID asthma exacerbation Discharge Exam constitutional- A&Ox4, appearing in no acute distress HEENT- mild pharyngeal erythema, no exudates; EOM intact cardiovascular- RRR, no murmurs pulmonary- good air movement throughout, clear to auscultation, no wheezing/rales/rhonchi GI- normoactive bowel sounds, nontender to palpation skin- no rashes on inspection Discharge Data Allergies Allergy/AdvReac Type Severity Reaction Status Date / Time No Known Allergies Allergy Unverified 01/07/24 21:31 Consultations 01/08/24 00:42 ED Decision to Admit Stat 01/08/24 02:28 Consult Pulmonology Routine Hospital Course (1) Asthma exacerbation: (2) Dyspnea: (3) COVID-19: Plan IMPRESSION: 18-year-old female with previous diagnosis of exercise-induced asthma who presents post-COVID infection with asthma exacerbation. RECOMMENDATIONS: 1. Asthma exacerbation - Patient was apparently profoundly wheezy on exam last evening. Thankfully, she is not bronchospastic on exam today at all. She is not hypoxic and is moving good air. I would back down her parenteral steroids to once daily and then start tomorrow with short course of prednisone. No indication for antibiotics at this point. She has a rescue inhaler. She warrants outpatient pulmonary follow-up for exploration of symptoms that have been current progressive related to her asthma. Consideration for NIOX testing and formal pulmonary function testing in the outpatient setting. This does not need to be performed the next 4 to 6 weeks until the patient has a chance to completely recover. Otherwise, patient is stable from a pulmonary perspective. 2. COVID - Patient had completed course of Paxlovid. She is not hypoxic. She had received aggressive steroids at the time of admission. No need for further management or intervention of the COVID at this time other than conservative measures. Cmns-coo-fhqausi decongestants and antihistamines as needed. Consideration for cough suppressant agents. Thank you for allowing us to participate in the care of this pleasant patient. Please feel free to reach out to us for any further questions or concerns. Total Time Total Time Spent Total Time Spent (In Minutes): <30 Discharge Plan Discharge Items Patient Disposition: Home - Self-Care Reason For Visit: ASTHMA EXACERBATION, COVID Discharge Diagnosis: asthma exacerbation Activity: Per Instructions section Non-emergency contact: Primary Care Provider and [employer] Call non-emergency contact if: you have any medication questions and your symptoms worsen Follow-up/Referrals: [facility] [Primary Care Provider] - Diet: Regular Addtl Attending Provider Instructions: You came to [facility] ED on the evening of 01/07/24 for post- COVID asthma exacerbation, including symptoms of shortness of breath, chest tightness, and cough. You were treated with IV steroids to reduce airway inflammation, nebulized albuterol for bronchospasm, guaifenesin and benzonatate to suppress your cough, as well as IV fluids for hydration. Clinically, you have significantly improved overnight, your physical exam this morning (01/08/24) showed you have good air movement within your lungs and no wheezing. We will be prescribing 4 days of prednisone 40mg - oral corticosteroid - starting tomorrow 01/09/24 since you already received IV corticosteroid (methylprednisolone) this morning, which will continue to reduce the airway inflammation that contributed to your decision to come to the ED. Take this medication first thing in the morning because it is stimulating, and ideally with breakfast because it can cause stomach upset. Continue using your albuterol inhaler as needed. Take it easy the next couple of days, then on Friday and Friday try to walk around outside a bit to simulate walking to your classes on Thursday 01/11. Lastly, continue to follow up with your green feed attendant in [place]. Pending Studies at Discharge: No Stand-Alone Forms: My [facility] [email or web address], Work/School Release Medications and DC Order Prescriptions: New prednisone 20 mg Tablet 40 mg PO DAILY 4 Days Qty: 8 0RF Continued isotretinoin 40 mg Capsule 40 mg PO BID Rx Instructions: must administer with a meal/food gafjbrigl-[id number]-NJ-acetaminophen 7.5-60-30-1,000 mg/30 mL Liquid 15 ml PO DAILY PRN (Reason: Congestion) benzonatate 100 mg capsule 100 mg PO DAILY [id number] 1 mg Tablet 1 tab PO DAILY lidocaine HCl [Lidocaine Viscous] 2 % solution 5 ml PO DAILY albuterol sulfate 90 mcg/actuation HFA aerosol inhaler 1 puff INHALATION DAILY PRN (Reason: sob) ashwagandha root extract 300 mg Capsule 300 mg PO DAILY Discharge Orders: Discharge Order (Routine); Ordered 01/08/24 Ordered By: Rosas Matthews/Other Patient Handouts: Asthma Medicine, Asthma Inhaled Corticosteroids, About Your Asthma Action Plan, Acute Severe Asthma, Asthma Admission Data Admit Date/Time: 01/08/24 02:02 Attending Provider: Russel Bills Admit Provider: Marcel Hannon Primary Care Provider: [facility] Other Providers: Marcel Hannon; Lian Marie Supervising Physician Co-Signing Physician Notes I personally examined the patient and verified all calvin points of history and exam, discussed case, and agree with decision making with Dr Bishop Feeling better and would like to go home. Cough improved. No exertional dyspnea. No conversational dyspnea. Parents present, answered all questions from patient and parents to the best my ability and to their satisfaction. Vitals noted, in general she is awake and alert pleasant no distress. No conversational dyspnea, no dyspnea with walking around the room. She does not even have much of a tight cough with conversation or exertion. Lungs are overall clear to auscultation bilaterally no rales rhonchi or wheezes good air entry no accessory muscle use good effort. Asthma exacerbationviral etiologyCOVID versus possibly given how long ago she was initially sick with COVID and how many respiratory viruses are present on campus right now, it is quite possible she had a "double hit"either way fortunately the asthma exacerbation appears to be improving enough that already she appears quite safe to go home. Extensive discussion. Prednisone burst. Albuterol as needed. Otherwise as above. Resident Activity Tracking Resident Involvement: Resident Care Provided Care Provided: Adult Hospital Medicine
[2024-01-08] MEDS ORDERED: FORMOTEROL 20 MCG/2 ML VIAL INH SCH (19:00)
[2024-01-08] MEDS ORDERED: methylPREDNISolone 40 MG in SYRINGE 0 ML IV ONE (19:00)
[2024-01-08] MEDS ORDERED: BUDESONIDE 0.25 MG/2 ML VIAL (PULMICORT) NEB SCH (19:00)
[2024-01-08] MEDS ORDERED: methylPREDNISolone 125 MG/2 ML VIAL IV ONE (19:00)
[2024-01-08 19:02] VITALS: BP 108/57; PULSE 77
--- NOTE | 2024-01-08 19:05 | Billing Data ---
Date of Service January 08, 2024 Coding Level of Care Code 53140 IN/OBS DISCH 30 MIN/LESS
[2024-01-08] MEDS ORDERED: AZITHROMYCIN 500 MG in DEXTROSE 5% 250 ML IV SCH (21:00)
[2024-01-09] MEDS ORDERED: predniSONE 20 MG TAB PO SCH (09:00)
== END 2024-01-08 13:00 | disposition home or self-care (01) ==
LOC: ED 17:45 → INTOOBSV 01-08 02:02 → EDINP 01-08 02:02 → SUATTDRO 01-08 02:02 → EDINP 01-08 14:22